=== PATIENT | female | born 1980 | race Asian ===

== ENCOUNTER 2017-01-10 18:05 | Emergency (ER) | payer BC ==
[2017-01-10 18:10] VITALS: BP 116/73; PULSE 74; BMI 20.1
[2017-01-10 18:59] VITALS: TEMP 98
--- NOTE | 2017-01-10 19:22 | PDOC ---
History of Present Illness - General Chief Complaint: Injury Stated Complaint: LACERATION TO FORHEAD WITH CAR DOOR Time Seen by Provider: 01/10/17 19:03 History Source: Patient Exam Limitations: No Limitations Past History - Past Medical History Allergies/Adverse Reactions: Allergies Allergy/AdvReac Type Severity Reaction Status Date / Time No Known Allergies Allergy Verified 01/10/17 18:07 Home Medications: Ambulatory Orders NK [No Known Home Medication] 01/10/17 Other medical history: pt denies - Immunization History Immunization Up to Date: Yes - Psycho/Social/Smoking Cessation Hx Anxiety: No Suicidal Ideation: No Smoking History: Never smoked Hx Alcohol Use: No Drug/Substance Use Hx: No Substance Use Type: None *Physical Exam - Vital Signs Last Vital Signs Temp Pulse Resp BP Pulse Ox 98 F 74 18 116/73 100 01/10/17 18:07 01/10/17 18:07 01/10/17 18:07 01/10/17 18:07 01/10/17 18:07 *DC/Admit/Observation/Transfer - Discharge Dispostion Condition at time of disposition: Stable
--- NOTE | 2017-01-10 19:24 | PDOC ---
History of Present Illness - General Chief Complaint: Injury Stated Complaint: LACERATION TO FORHEAD WITH CAR DOOR Time Seen by Provider: 01/10/17 19:03 History Source: Patient Exam Limitations: No Limitations - History of Present Illness Initial Comments: 01/10/17 22:03 This is a 36-year-old female who comes in for evaluation of a superficial laceration to her forehead. Patient was leaning over when the trunk door of her vehicle hit her in the forehead as it closed automatically. Patient did not pass out she denies any headache, any blurry vision any nausea or any other complaints. PAST MEDICAL HISTORY: no significant history PAST SURGICAL HISTORY: no significant history FAMILY HISTORY: no pertinant history SOCIAL HISTORY: Pt lives with family and is employed. MEDICATIONS: reviewed ALLERGIES: As per nursing notes Review of Systems General: No fevers or chills, no weakness, no weight loss HEENT: No change in vision. No sore throat,. No ear pain CardioVascular: No chest pain or shortness of breath Respiratory:No cough, or wheezing. Gastrointestinal: no nausea, vomitting, diarrhea or constipation, No rectal bleeding Genitourinary: No dysuria, hematuria, or frequency Musculoskeletal: No joint or muscle pain or swelling Neurologic: No headache, vertigo, dizziness or loss of consciousness Psychiatric: nor depression Skin: No rashes or easy bruising Endocrine: no increased thirst or abnormal weight change Allergic: no skin or latex allergy All other systems reviewed and normal GENERAL: The patient is awake, alert, and fully oriented, in no acute distress. HEAD: There is approximately 1 cm superficial laceration to the upper portion of her mid forehead. EYES: Pupils equal, round and reactive to light, extraocular movements intact, sclera anicteric, conjunctiva clear. EXTREMITIES: Normal range of motion, no edema. NEUROLOGICAL: Normal speech, normal gait. PSYCH: Normal mood, normal affect. SKIN: Warm, Dry, normal turgor, no rashes or lesions noted. Procedure note laceration repair: Laceration was cleaned with some peroxide and closed with Dermabond Patient tolerated well Assessment and plan: This is a 36-year-old female with a superficial laceration of her for that was closed with Dermabond. Patient discharged will follow-up with her primary care doctor as needed Past History - Past Medical History Allergies/Adverse Reactions: Allergies Allergy/AdvReac Type Severity Reaction Status Date / Time No Known Allergies Allergy Verified 01/10/17 18:07 Home Medications: Ambulatory Orders NK [No Known Home Medication] 01/10/17 Other medical history: pt denies - Immunization History Immunization Up to Date: Yes - Psycho/Social/Smoking Cessation Hx Anxiety: No Suicidal Ideation: No Smoking History: Never smoked Hx Alcohol Use: No Drug/Substance Use Hx: No Substance Use Type: None *Physical Exam - Vital Signs Last Vital Signs Temp Pulse Resp BP Pulse Ox 98 F 74 18 116/73 100 01/10/17 18:07 01/10/17 18:07 01/10/17 18:07 01/10/17 18:07 01/10/17 18:07 *DC/Admit/Observation/Transfer Diagnosis at time of Disposition: Forehead laceration - Discharge Dispostion Disposition: HOME Condition at time of disposition: Stable Admit: No - Patient Instructions Printed Discharge Instructions: DI for Closed Head Injury, DI for Laceration Repair With Dermabond Additional Instructions: Read over and follow Dermabond instructions. Return to the emergency department immediately with ANY new, persistent or worsening symptoms. Continue any medications as previously prescribed by your physician. You should follow up with your primary doctor as soon as possible regarding today's emergency department visit. . Please make sure your doctor reviews the results of your emergency evaluation. Thank you for coming to the Emergency Department today for your care. It was a pleasure to see you today. Please note that your evaluation is INCOMPLETE until you follow-up with your doctor. Someone should check on you once tonight during the night. You should be arousable to your Normal level of arousability for that time of the night. If you have been vomiting, have had a seizure, or you are unable to be aroused or the person checking on you is concerned that there has been a change in your mental status they should call 911 and have you brought back to the emergency department. You can take Tylenol as needed for pain.
== END 2017-01-10 19:43 | disposition home or self-care (01) ==
LOC: FER 18:05
PROC: 0HQ1XZZ Repair Face Skin, External Approach (ICD-10-PCS; principal; 2017-01-10)
DX: S01.81XA Laceration without foreign body of other part of head, initial encounter (principal); W20.8XXA Other cause of strike by thrown, projected or falling object, initial encounter; Y93.89 Activity, other specified; Y92.9 Unspecified place or not applicable
CPT/HCPCS: 99281-25